=== PATIENT | female | born 1975 | race Caucasian/White ===

== ENCOUNTER → 2018-11-09 | Outpatient (REF) | payer OTHER | LOC: M SFHCLERA 12:52 | PROVIDERS: ATTEND Physician Assistant | DX: J02.9 Acute pharyngitis, unspecified (principal) ==

== ENCOUNTER → 2019-10-30 | Outpatient (CLI) | payer OTHER ==
--- NOTE | 2019-10-30 10:48 | REP ---
Clinical: Pain. Technique: Neutral and frog lateral views of the left hip. Findings: No obvious acute fracture or dislocation. Skeletal structures, joint spaces, and surrounding soft tissues appear normal. Impression: No acute fracture or dislocation. Electronically Signed by Roger Nevarez MD 10/30/2019 10:39 A
== END ==
LOC: M LRY 10:21
PROVIDERS: ATTEND Nurse Practitioner Family
DX: M25.552 Pain in left hip (principal)
CPT/HCPCS: 73502; G0463

== ENCOUNTER 2020-05-05 13:27 | Emergency (ER) | payer OTHER ==
[~2020-05-05] VITALS: Ht 157.5 cm; Wt 86.4 kg
[2020-05-05] MEDS ORDERED: CONC27TA4 PO (13:48)
[2020-05-05] MEDS ORDERED: ONE-TAB33 PO (13:48)
[2020-05-05] MEDS ORDERED: CONC18TA14 PO (13:48)
[2020-05-05] MEDS ORDERED: MVI,5VIA5 IV (13:48)
[2020-05-05] MEDS ORDERED: PROZ40CA PO (13:48)
[2020-05-05] MEDS ORDERED: PROZ20CA11 PO (13:48)
[2020-05-05] MEDS ORDERED: MAGN400C PO (13:48)
[2020-05-05] MEDS ORDERED: NEXI20CA33 PO (13:48)
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
[2020-05-05 15:09] VITALS: BP 122/70
== END 2020-05-05 15:12 | disposition home or self-care (01) ==
LOC: M ED 13:27
DX: R07.81 Pleurodynia (principal); Y04.8XXA Assault by other bodily force, initial encounter; Y92.89 Other specified places as the place of occurrence of the external cause; Y93.9 Activity, unspecified; Y99.0 Civilian activity done for income or pay; K21.9 Gastro-esophageal reflux disease without esophagitis; F41.9 Anxiety disorder, unspecified; F32.9 Major depressive disorder, single episode, unspecified; Z87.59 Personal history of other complications of pregnancy, childbirth and the puerperium; Z87.11 Personal history of peptic ulcer disease; Z88.8 Allergy status to other drugs, medicaments and biological substances

== ENCOUNTER → 2020-10-07 | Outpatient (REF) ==
[~2020-10-07] MED LIST: CONC18TA14 PO; CONC27TA4 PO; MAGN400C PO; MVI,5VIA5 IV; NEXI20CA33 PO; ONE-TAB33 PO; PROZ20CA11 PO; PROZ40CA PO
== END ==
LOC: M LABSMTC 14:24
PROVIDERS: ATTEND Pediatrics
DX: Z20.822 Contact with and (suspected) exposure to COVID-19 (principal)

== ENCOUNTER → 2020-12-28 | Outpatient (REF) | LOC: M EMP 11:14 | PROVIDERS: ATTEND Family Medicine | DX: Z20.828 Contact with and (suspected) exposure to other viral communicable diseases (principal) ==

== ENCOUNTER → 2021-03-29 | Outpatient (REF) | LOC: M LABSMTC 10:41 | PROVIDERS: ATTEND Family Medicine | DX: Z11.52 Encounter for screening for COVID-19 (principal) ==

== ENCOUNTER → 2023-02-02 | Outpatient (CLI) | payer OTHER | LOC: M WHC 07:31 | PROVIDERS: ATTEND Family Medicine | DX: N63.14 Unspecified lump in the right breast, lower inner quadrant (principal) | CPT/HCPCS: 77066; G0279 ==